=== PATIENT | female | born 1955 | race Caucasian/White ===

== ENCOUNTER 2019-11-23 19:05 | Observation (INO) | payer MEDICAID, SELFPAY ==
[2019-11-23 19:06] VITALS: BP 157/107; PULSE 70; RESP 16; TEMP 36.6; O2SAT 96; BMI 17.5
--- NOTE | 2019-11-23 19:18 | ED.DCSUM_ITS ---
- ER Visit Summary Date of Service: 11/23/19 Chief Complaint: Requesting detox History of Present Illness: The patient is a 64 F requesting detox from heroin. Her last use was yesterday. She states she snorts and injects heroin daily. She was previously on Suboxone treatment but states she did not get along with the doctor and stopped this 6 weeks ago. Since then she has been using heroin. Before using heroin she states she was using morphine for the past 10 years. She also admits to marijuana use. Denies other drug use. Denies alcohol use. She has nausea and diarrhea. Denies other complaints. Physical Examination: Vitals are stable. Patient is afebrile. Alert no acute distress. HEENT exam is unremarkable. Neck is supple. Lungs are clear and equal bilaterally. Heart is regular rate and rhythm. Abdomen is soft nontender nondistended. No guarding or rebound Extremities are unremarkable. Skin is warm and dry. No focal neurologic deficit. Remainder of exam is unremarkable. Emergency Department Course and Treatment: Patient was given IV Zofran. Ordered addiction medicine labs. Will discuss with hospitalist for admission. Disposition: Admission Impression: Opiate dependence This note was generated with [employer] dictation software. It may contain incorrect words, spelling, and punctuation that were not noted in review of the chart prior to signing ED Disposition - Plan for ED Patient: Referrals: Nawaf Walls,Out of [Primary Care Provider] -
[2019-11-23 19:47] VITALS: BP 157/107; PULSE 70; RESP 16; TEMP 36.6; O2SAT 96
--- NOTE | 2019-11-23 19:51 | HP.PCM_ITS ---
History of Present Illness Date of Admission: 11/23/19 Chief Complaint: opiate withdrawal The patient is a 64 year old F with a past medical history of including heroine and nicotine as well as hepatitis C. She was admitted through the ED on 11/23/2019 with a complaint of opiate withdrawal. Patient uses heroin daily and states she snorts this and injects it. Her last use was 1 day prior to admission and thinks she is about 2 g. She complained of headache, generalized malaise and feeling restless, and abdominal cramps as well as increased sweating. She used to be on Suboxone treatment but states she quit about 6 weeks ago because she refused to go to the doctor in [place] as she did not get along with him and he was too far away. Since then she has been using heroin. She is treatment na?ve for hepatitis C. She also admits to using marijuana but denies any alcohol or any other drug use. Review of systems otherwise negative. In the ED, blood pressure was 157/107 with temperature of 97.9, pulse rate of 70 respiratory rate of 16. Chemistry was pending at time of review. He was saturating 96% on room air. Serum alcohol level was pending. He has been admitted to be managed for acute opiate withdrawal. [] Past Medical History Allergies butorphanol [From Stadol] Adverse Reaction (Verified 11/23/19 19:08) NEEDS FOLLOW-UP pentazocine [From Talwin] Adverse Reaction (Verified 11/23/19 19:08) NEEDS FOLLOW-UP ropinirole [From Requip] Adverse Reaction (Verified 11/23/19 19:08) PT UNSURE OF REACTION Surgical History: no surgical history Psychiatric History: No pertinent psych hx RENEWAL SPECIALIST History: No pertinent RENEWAL SPECIALIST history Lives: Alone Smoking Status: Heavy Smoker (>10/day) Tobacco Use: Cigarettes Alcohol: Occasional Drugs: Heroin, Marijuana - *Family History Maternal History Items: No pertinent history Paternal History Items: No pertinent history Review of Systems Constitutional: Reports: Chills, Malaise, Weakness, Fatigue. Denies: Anorexia, Fever Eyes: Denies: Blurred vision HEENT: Denies: Head Aches, Sinus Congestion, Sinus Drainage Cardiovascular: Denies: Chest Pain, Palpitations Respiratory: Denies: Cough, Shortness of Breath, Shortness of breath at rest, Shortness of breath upon exertion, Sputum production Gastrointestinal: Reports: Diarrhea, Nausea. Denies: Abdominal Pain, Vomiting Genitourinary: Denies: Dysuria Musculoskeletal: Denies: Joint Pain, Joint Tenderness Skin: Denies: Rash, Wounds Neurological: Denies: Numbness, Tingling, Focal weakness Psychiatric: Denies: Anxiety, Depression, Homicidal Ideations, Suicidal Ideations Hematologic/ Lymphatic: Denies: Easy Bruising, Easy Bleeding VTE Information - Inpt Only VTE Present on Admission: No VTE Mechan Device Prophylaxis: SCD's VTE Pharm Prophylaxis ordered?: No - Physical Exam Vitals/I&O's: Vital Signs Temp Pulse Resp BP Pulse Ox 97.9 F 70 16 157/107 H 96 11/23/19 19:47 11/23/19 19:47 11/23/19 19:47 11/23/19 19:47 11/23/19 19:47 Oxygen Delivery Method Room Air Weight: 102 lb 1.184 oz Body Mass Index (BMI) 17.5 General: Alert, Oriented x3, Cooperative, - - restless, looks uncomfortable HEENT: Atraumatic, PERRLA, EOMI, Normocephalic Oral: Dry Mucosa Neck: Supple, No JVD, Negative Carotid Bruits Lungs: Clear to auscultation, Normal air movement, No rhonchi, No wheeze, No rales Cardiovascular: Regular rate, Regular Rhythm, Normal S1, Normal S2, No murmurs Abdomen: Bowel Sounds Present, Soft, Non Tender, Non-Distended, No Hepato- splenomegaly Extremities: No clubbing, No cyanosis, No edema, Capillary Refill Less than 3 Seconds Skin: No rashes, No breakdown Musculoskeletal: No Tenderness to Palpation of Joints or Extremities Lymphatic: No Cervical, Supraclavicular, or Inguinal Adenopathy Neurological: Cranial nerves II-XII grossly intact, Neuro grossly intact, Motor Exam 5/5 strength throughout Psych/Mental Status: Anxious, Restless, Alert and oriented to time, place, person, mood and affect Laboratory Results 11/23/19 19:40: Sodium Pending, Potassium Pending, Chloride Pending, Carbon Dioxide Pending, Anion Gap Pending, BUN Pending, Creatinine Pending, Est GFR (MDRD) Af Amer Pending, Est GFR (MDRD) Non-Af Pending, BUN/Creatinine Ratio Pending, Glucose Pending, Calcium Pending, Total Bilirubin Pending, AST Pending, ALT Pending, Alkaline Phosphatase Pending, Total Protein Pending, Albumin Pending 11/23/19 19:40: Ethyl Alcohol Pending Assessment/Plan 64-year-old female admitted for acute opioid withdrawal. 1. Acute opioid withdrawal * Admit to [facility] * CBC and CMP pending. * Started on opioid withdrawal protocol with buprenorphine. * Consult case management for discharge planning as patient wants to continue with her Suboxone treatment upon discharge. * 2. History of hepatitis C: * Treatment na?ve she still using IV drugs. * Counseled that she would need to be off IV drugs before she would qualify for treatment. * 3. Nicotine dependence: * Smokes about 1 pack every 2 to 3 days. * Counseled to quit. * Nicotine patch 21 mg daily. * VT prophylaxis: Low risk. Encouraged to ambulate. Inpatient E&M: 80971 Init Hosp L3
[2019-11-23] MEDS: Ondansetron 4 MG/2 ML Vial IV (20:03)
[2019-11-23 20:08] LABS: ALB/GLOB Ratio 0.5 RATIO (0.9-2.4); AST(SGOT) 34 U/L (15-37); Alanine Aminotransfer ALT/SGPT 26 U/L (13-56); Albumin, Serum 2.8 g/dL (3.2-5.0); Alcohol, Blood (Medical)-Serum < 3.0 mg/dL; Alkaline Phosphatase 117 U/L (45-117); Anion Gap 8 (5-15); BUN 9 mg/dL (7-18); BUN/Creat Ratio 10.6 RATIO (10-20); Calcium,Total 9.1 mg/dL (8.5-10.1); Chloride 110 mmol/L (98-107); Creatinine, Serum 0.85 mg/dL (0.55-1.02); EST Glomerular Filtration Rate 72 mL/min (>60); Est Glom Filt Rate - Afr Amer 87 mL/min (>60); Estimated Creatinine Clearance 50.16 ml/min; Globulin 5.7 g/dL (2.2-4.2); Glucose 175 mg/dL (74-106); Potassium 3.7 mmol/L (3.5-5.1); Protein, Total 8.5 g/dL (6.4-8.2); Sodium Level 140 mmol/L (136-145)
[2019-11-23 20:26] VITALS: PULSE 52
[2019-11-23 20:30] VITALS: BP 149/89; PULSE 51; RESP 16; TEMP 36.7; O2SAT 98
[2019-11-23 20:38] VITALS: BMI 17.2
[2019-11-23 20:47] VITALS: BMI 17.2
[2019-11-23 20:50] LABS: Amphetamine Urine VISTA NEGATIVE (<1000 ng/mL); Barbiturate Urine VISTA NEGATIVE (< 200 ng/mL); Benzodiazepine Urine VISTA NEGATIVE (< 200 ng/mL); Cocaine Urine VISTA NEGATIVE (< 300 ng/mL); Ecstacy Urine VISTA NEGATIVE (< 500 ng/mL); Methadone Urine VISTA NEGATIVE (< 300 ng/mL); PCP Urine VISTA NEGATIVE (< 25 ng/mL); THC Urine VISTA POSITIVE (< 50 ng/mL); Vista UDS pH Range 6
[2019-11-23 21:14] LABS: Bilirubin, Direct 0.09 mg/dL (0.00-0.30)
[2019-11-23] MEDS: cloNIDine HCl 0.1 MG Tablet PO (22:10)
[2019-11-23] MEDS: Methocarbamol 750 MG Tablet 1500 MG PO (22:10)
[2019-11-23] MEDS: Ondansetron 8 MG Tablet PO (23:26)
[2019-11-23] MEDS: Ibuprofen 400 MG Tablet PO (23:36)
[2019-11-23] MEDS: traZODone 100 MG Tablet PO (23:36)
[2019-11-24] MEDS: Buprenorphine HCl 2 MG TAB.SUBL SL ×3 (00:24→16:25)
[2019-11-24] MEDS: Gabapentin 300 MG Capsule PO ×2 (00:24→12:03)
[2019-11-24 00:30] VITALS: BP 161/97; PULSE 76; RESP 16; TEMP 36.6; O2SAT 96
[2019-11-24 04:30] VITALS: BP 138/74; PULSE 52; RESP 16; TEMP 36.6; O2SAT 95
[2019-11-24 05:10] LABS: Absolute Lymphocyte Count 4.78 X10^3/uL (0.83-4.51); Basophil# 0.08 X10^3/uL; Basophil% 0.7 % (0-1); Eosinophil# 0.17 X10^3/uL; Eosinophils% 1.5 % (0-5); Hemoglobin 13.4 g/dL (12.0-15.0); Lymphocyte # 4.78 X10^3/ul (4.0); Lymphocyte % 41.2 % (19-41); Mean Corp Hgb Conc 31.9 g/dL (32-36); Mean Corpuscular Hgb 24.6 pg (27.0-32.0); Mean Corpuscular Volume 77.2 fL (81-99); Mean Platelet Vol. 10.8 fl (6.2-12.0); Monocyte# 0.54 X10^3/uL; Monocyte% 4.7 % (0-10); NRBC Flagged by Analyzer 0 % (0-5); Neutrophil # 5.95 X10^3/uL (2.7-7.7); Neutrophil % 51.3 % (47-70); POSITIVE MORPHOLOGY YES; Platelet Count 199 K/mm3 (150-450); RBC Distribution Width CV 16.9 % (11.6-14.6); RBC Distribution Width SD 46.2 fl (35.1-43.9); Red Blood Count 5.44 M/mm3 (4.2-5.4); White Blood Count 11.6 K/mm3 (4.4-11.0)
[2019-11-24 05:18] LABS: Differential Indicated SCAN CRITERIA MET
[2019-11-24 06:32] LABS: Reactive Lymphocyte RARE
--- NOTE | 2019-11-24 07:08 | PN_ITS ---
Reason for Visit: Follow-up on acute opioid withdrawal Subjective: Patient was seen and examined. Complains of generalized body aches. Denied any chest pain or dizziness. No other acute events overnight Objective: Physical exam: General: Alert, Oriented x3, Cooperative, - - restless, looks uncomfortable HEENT: Atraumatic, PERRLA, EOMI, Normocephalic Oral: Dry Mucosa Neck: Supple, No JVD, Negative Carotid Bruits Lungs: Clear to auscultation, Normal air movement, No rhonchi, No wheeze, No rales Cardiovascular: Regular rate, Regular Rhythm, Normal S1, Normal S2, No murmurs Abdomen: Bowel Sounds Present, Soft, Non Tender, Non-Distended, No Hepato- splenomegaly Extremities: No clubbing, No cyanosis, No edema, Capillary Refill Less than 3 Seconds Skin: No rashes, No breakdown Musculoskeletal: No Tenderness to Palpation of Joints or Extremities Lymphatic: No Cervical, Supraclavicular, or Inguinal Adenopathy Neurological: Cranial nerves II-XII grossly intact, Neuro grossly intact, Motor Exam 5/5 strength throughout Psych/Mental Status: Anxious, Restless, Alert and oriented to time, place, person, mood and affect Vitals/I&O's: Vital Signs Temp Pulse Resp BP Pulse Ox 97.9 F 52 L 16 138/74 H 95 11/24/19 04:30 11/24/19 04:30 11/24/19 04:30 11/24/19 04:30 11/24/19 04:30 Oxygen Delivery Method Room Air Weight: 45.4 kg Body Mass Index (BMI) 17.2 Intake and Output for Last 24 Hours 11/22/19 11/23/19 11/24/19 23:59 23:59 23:59 Intake Total 350 / 350 200 / 200 Balance 350 / 350 200 / 200 Laboratory Results 11/23/19 19:40: Sodium 140, Potassium 3.7, Chloride 110 H, Carbon Dioxide 22.0, Anion Gap 8, BUN 9, Creatinine 0.85, Estim Creat Clear Calc 50.16, Est GFR (MDRD) Af Amer 87, Est GFR (MDRD) Non-Af 72, BUN/Creatinine Ratio 10.6, Glucose 175 H, Calcium 9.1, Total Bilirubin 0.50, AST 34, ALT 26, Alkaline Phosphatase 117, Total Protein 8.5 H, Albumin 2.8 L, Globulin 5.7 H, Albumin/Globulin Ratio 0.5 L 11/23/19 19:40: Ethyl Alcohol < 3.0 11/23/19 19:40: Direct Bilirubin 0.09 11/23/19 20:15: Urine Opiates Screen NEGATIVE, Urine Methadone Screen NEGATIVE, Ur Barbiturates Screen NEGATIVE, Ur Phencyclidine Scrn NEGATIVE, Ur Amphetamines Screen NEGATIVE, U Methamphetamin-MDMA NEGATIVE, U Benzodiazepines Scrn NEGATIVE, Urine Cocaine Screen NEGATIVE, U Cannabinoids Screen POSITIVE H, Ur Drug Screen Comment 11/24/19 05:02: WBC 11.6 H, RBC 5.44 H, Hgb 13.4, Hct 42.0, MCV 77.2 L, MCH 24.6 L, MCHC 31.9 L, RDW Std Deviation 46.2 H, RDW Coeff of Nathanael 16.9 H, Plt Count 199, MPV 10.8, Immature Gran % (Auto) 0.600, Neut % (Auto) 51.3, Lymph % (Auto) 41.2 H, [place] % (Auto) 4.7, Eos % (Auto) 1.5, Baso % (Auto) 0.7, Absolute Neuts (auto) 6.0, Absolute Lymphs (auto) 4.78 H, Nucleated RBC % 0, Reactive Lymphocytes RARE Current Medications Buprenorphine HCl (Buprenorphine Hcl) 4 mg SL Q8H LESLIE; Taper Stop: 11/27/19 00:29 Last Admin: 11/24/19 00:24 Dose: 4 mg Documented by: Clonidine (Catapres) 0.1 mg PO Q8H PRN PRN PRN Reason: RESTLESSNESS Last Admin: 11/23/19 22:10 Dose: 0.1 mg Documented by: Dextrose (D50w Syringe) 0 gm IV X1 PRN; Protocol PRN Reason: Hypoglycemia Dicyclomine HCl (Bentyl) 20 mg PO Q6H PRN PRN PRN Reason: Abdominal Discomfort Gabapentin (Neurontin) 300 mg PO Q8H PRN PRN PRN Reason: moderate to severe anxiety Last Admin: 11/24/19 00:24 Dose: 300 mg Documented by: Glucagon () 1 mg IM .X1 PRN PRN Reason: Hypoglycemia Hydroxyzine Pamoate (Vistaril Pamoate Capsule) 50 mg PO Q6H PRN PRN PRN Reason: mild anxiety Ibuprofen (Motrin) 400 mg PO Q6H PRN PRN PRN Reason: HEADACHE Last Admin: 11/23/19 23:36 Dose: 400 mg Documented by: Loperamide HCl (Imodium) 2 mg PO Q4H PRN PRN PRN Reason: LOOSE STOOLS Methocarbamol (Methocarbamol) 1,500 mg PO Q6H PRN PRN PRN Reason: MUSCLE SPASM Last Admin: 11/23/19 22:10 Dose: 1,500 mg Documented by: Nutritional Formula (Lactose Free) (Ensure Enlive) 120 ml PO 4X/DAY LESLIE Last Admin: 11/23/19 22:10 Dose: 120 ml Documented by: Ondansetron HCl (Zofran) 8 mg PO Q8H PRN PRN PRN Reason: NAUSEA Last Admin: 11/23/19 23:26 Dose: 8 mg Documented by: Ondansetron HCl (Zofran) 4 mg IV Q8H PRN PRN PRN Reason: NAUSEA/VOMITING Sodium Chloride () 10 - 40 ml IV UD PRN PRN Reason: SALINE FLUSH Trazodone HCl (Desyrel) 100 mg PO QHS PRN PRN PRN Reason: INSOMNIA Last Admin: 11/23/19 23:36 Dose: 100 mg Documented by: STROKE Vital Signs/Narrative: Vital Signs Temp Pulse Resp BP Pulse Ox 11/24/19 04:30 97.9 F 52 L 16 138/74 H 95 Medical Necessity - Tobacco Use Smoking Status: Heavy Smoker (>10/day) Tobacco Use: Cigarettes Assessment/Plan 1. Acute opioid withdrawal, stable, continue on withdrawal protocol 2. Hypertension, improved, No history of hypertension; continue to monitor 3. Chronic Hepatitis C, needs to follow-up in the outpatient 4. Nicotine dependence, on replacement 5. Malnutrition, mild to moderate, on nutritional supplements 6. Polysubstance use, advised to quit 7. DVT prophylaxis - encourage early ambulation Inpatient E&M: 38040 Subs Hosp L2
--- NOTE | 2019-11-24 09:23 | CASEMGMT ---
Social Work Note Pt is RAMP pt. SW placed a call to Samantha Hightower at [facility] and updated her that pt will need to be seen today. Samantha states she will send someone over from [facility] today. Minda Galvez YARN PACKER, CABLE SWAGER
[2019-11-24] MEDS: Ibuprofen 400 MG Tablet PO ×2 (11:11→21:02)
[2019-11-24] MEDS: Ondansetron 8 MG Tablet PO (11:12)
[2019-11-24] MEDS: hydrOXYzine PAM 25 MG Capsule 50 MG PO (11:12)
[2019-11-24] MEDS: Methocarbamol 750 MG Tablet 1500 MG PO ×2 (12:01→18:33)
--- NOTE | 2019-11-24 12:24 | NURSING ---
pt called out wanting more meds for hurting cm from 180 in to eval pt for dc planning. pt more anxious appearing during evalulation and asking for gabepentin also at this time.
--- NOTE | 2019-11-24 12:47 | NURSING ---
180 in to see pt this shift- pt refusing all services from [facility] and states that she wants to return home to [place]. 180 states that she did refer her to [place].
[2019-11-24] MEDS: Gabapentin 600 MG Tablet PO ×2 (14:27→21:02)
[2019-11-24 14:47] VITALS: PULSE 76; RESP 18
[2019-11-24] MEDS: Ipratropium/Albuterol Sulfate 3 ML AMPUL.NEB INHALATION (14:47)
[2019-11-24] MEDS: cloNIDine HCl 0.2 MG Tablet PO ×2 (14:55→21:03)
[2019-11-24 18:00] VITALS: BP 133/83; PULSE 66; RESP 16; TEMP 36.8; O2SAT 97
[2019-11-24 22:53] VITALS: BP 119/78; PULSE 67; RESP 16; TEMP 37.3; O2SAT 94
[2019-11-25] MEDS: Buprenorphine HCl 2 MG TAB.SUBL SL ×3 (00:48→16:38)
[2019-11-25 04:04] VITALS: BP 136/82; PULSE 56; RESP 16; TEMP 36.7; O2SAT 94
[2019-11-25] MEDS: cloNIDine HCl 0.2 MG Tablet PO ×3 (06:28→22:31)
[2019-11-25] MEDS: Ondansetron 8 MG Tablet PO ×2 (06:28→21:27)
[2019-11-25] MEDS: Gabapentin 600 MG Tablet PO ×3 (06:28→22:31)
[2019-11-25 06:35] VITALS: PULSE 77; RESP 16
[2019-11-25] MEDS: Ipratropium/Albuterol Sulfate 3 ML AMPUL.NEB INHALATION (06:35)
[2019-11-25] MEDS: Budesonide Respules 0.5 MG/2 ML AMPUL.NEB. INHALATION (06:35)
[2019-11-25 08:10] VITALS: BP 116/77; PULSE 59; RESP 16; TEMP 36.6; O2SAT 96
--- NOTE | 2019-11-25 08:18 | PN_ITS ---
Reason for Visit: Follow-up on acute opiate withdrawal/left hand and foot swelling. Subjective: Patient was seen and examined. She complains of swelling in the left hand ongoing for some days. She took some leftover antibiotics a couple of days ago. She denies any fever or chills. She is to express some pus from the hand. The swelling in the hand and foot is much better. Objective: Physical exam: General: Alert, Oriented x3, Cooperative, - - restless, looks uncomfortable HEENT: Atraumatic, PERRLA, EOMI, Normocephalic Oral: Dry Mucosa Neck: Supple, No JVD, Negative Carotid Bruits Lungs: Clear to auscultation, Normal air movement, No rhonchi, No wheeze, No rales Cardiovascular: Regular rate, Regular Rhythm, Normal S1, Normal S2, No murmurs Abdomen: Bowel Sounds Present, Soft, Non Tender, Non-Distended, No Hepato- splenomegaly Extremities: No clubbing, No cyanosis, No edema, Capillary Refill Less than 3 Seconds Skin: No rashes, No breakdown Musculoskeletal: No Tenderness to Palpation of Joints or Extremities Lymphatic: No Cervical, Supraclavicular, or Inguinal Adenopathy Neurological: Cranial nerves II-XII grossly intact, Neuro grossly intact, Motor Exam 5/5 strength throughout Psych/Mental Status: Anxious, Restless, Alert and oriented to time, place, person, mood and affect Vitals/I&O's: Vital Signs Temp Pulse Resp BP Pulse Ox 97.9 F 59 L 16 116/77 96 11/25/19 08:10 11/25/19 08:10 11/25/19 08:10 11/25/19 08:10 11/25/19 08:10 Oxygen Delivery Method Room Air Weight: 45.4 kg Body Mass Index (BMI) 17.2 Intake and Output for Last 24 Hours 11/23/19 11/24/19 11/25/19 23:59 23:59 23:59 Intake Total 350 / 350 200 / 200 Balance 350 / 350 200 / 200 Current Medications Albuterol Sulfate (Ventolin Aerosols) 2.5 mg INHALATION Q4H PRN PRN PRN Reason: SOB &/OR WHEEZING Albuterol/Ipratropium (Duoneb) 3 ml INHALATION Q6HWA.RT LESLIE Last Admin: 11/25/19 06:35 Dose: 3 ml Documented by: Budesonide (Pulmicort Aerosol) 0.5 mg INHALATION Q12H.RT [facility] Last Admin: 11/25/19 06:35 Dose: 0.5 mg Documented by: Buprenorphine HCl (Buprenorphine Hcl) 2 mg SL Q8H [facility]; Taper Stop: 11/27/19 00:29 Last Admin: 11/25/19 00:48 Dose: 2 mg Documented by: Clonidine (Catapres) 0.2 mg PO TID [facility] Last Admin: 11/25/19 06:28 Dose: 0.2 mg Documented by: Dextrose (D50w Syringe) 0 gm IV X1 PRN; Protocol PRN Reason: Hypoglycemia Dicyclomine HCl (Bentyl) 20 mg PO Q6H PRN PRN PRN Reason: Abdominal Discomfort Famotidine (Pepcid) 40 mg PO DAILY [facility] Gabapentin (Neurontin) 600 mg PO TID [facility] Last Admin: 11/25/19 06:28 Dose: 600 mg Documented by: Glucagon () 1 mg IM .X1 PRN PRN Reason: Hypoglycemia Hydroxyzine Pamoate (Vistaril Pamoate Capsule) 50 mg PO Q6H PRN PRN PRN Reason: mild anxiety Last Admin: 11/24/19 11:12 Dose: 50 mg Documented by: Ibuprofen (Motrin) 400 mg PO Q6H PRN PRN PRN Reason: HEADACHE Last Admin: 11/24/19 21:02 Dose: 400 mg Documented by: Loperamide HCl (Imodium) 2 mg PO Q4H PRN PRN PRN Reason: LOOSE STOOLS Loratadine (Claritin) 10 mg PO DAILY [facility] Methocarbamol (Methocarbamol) 1,500 mg PO Q6H PRN PRN PRN Reason: MUSCLE SPASM Last Admin: 11/24/19 18:33 Dose: 1,500 mg Documented by: Nicotine (Nicoderm Cq (Pbkc)) 21 mg TRANSDERM. DAILY [facility] Last Admin: 11/24/19 14:27 Dose: Not Given Documented by: Nicotine Polacrilex ([place]ugby Nicotine (Bkc)) 2 mg PO Q2H PRN PRN PRN Reason: Nicotine Craving Nutritional Formula (Lactose Free) (Ensure Enlive) 120 ml PO 4X/DAY [facility] Last Admin: 11/24/19 21:05 Dose: 120 ml Documented by: Ondansetron HCl (Zofran) 8 mg PO Q8H PRN PRN PRN Reason: NAUSEA Last Admin: 11/25/19 06:28 Dose: 8 mg Documented by: Ondansetron HCl (Zofran) 4 mg IV Q8H PRN PRN PRN Reason: NAUSEA/VOMITING Sodium Chloride () 10 - 40 ml IV UD PRN PRN Reason: SALINE FLUSH Trazodone HCl (Desyrel) 100 mg PO QHS PRN PRN PRN Reason: INSOMNIA Last Admin: 11/23/19 23:36 Dose: 100 mg Documented by: STROKE Vital Signs/Narrative: Vital Signs Temp Pulse Resp BP Pulse Ox 11/25/19 08:10 97.9 F 59 L 16 116/77 96 11/25/19 06:35 77 16 Medical Necessity - Tobacco Use Smoking Status: Heavy Smoker (>10/day) Tobacco Use: Cigarettes Assessment/Plan 1. Acute opioid withdrawal, stable, continue on withdrawal protocol 2. Left dorsum of hand and left foot swelling, Will get x-ray of the foot, plastic surgery consult for possible I&D of the left arm 3. Hypertension, improved, No history of hypertension; continue to monitor 4. Chronic Hepatitis C, needs to follow-up in the outpatient 5. Nicotine dependence, on replacement 6. Malnutrition, severe, POA On nutritional supplements 7. Polysubstance use, advised to quit 8. DVT prophylaxis - encourage early ambulation Inpatient E&M: 05472 Subs Hosp L2
[2019-11-25] MEDS: Ibuprofen 400 MG Tablet PO ×2 (08:25→20:08)
[2019-11-25] MEDS: Dicyclomine 10 MG Capsule 20 MG PO (08:26)
[2019-11-25] MEDS: Famotidine 20 MG Tablet 40 MG PO (08:29)
--- NOTE | 2019-11-25 08:51 | CASEMGMT ---
Social Work Note SW received message from Carol at [facility]. Carol states she placed copies of pt's assessment on pt's chart and pt will need referral to [facility] for follow up services. BROWN placed a call back to Carol at [facility] and left message that [facility] has been making follow up appointments and referrals for pt that they see so [facility] will need to follow up with pt. Minda Galvez LAW ENFORCEMENT OFFICER, STORAGE ARCHITECT
--- NOTE | 2019-11-25 11:08 | RAD_ITS ---
STUDY: X-RAY - LEFT FOOT CLINICAL: Female, 64 years old. Pain on top of foot for two weeks. TECHNIQUE: 3 view(s) of the foot. COMPARISON: None. FINDINGS: Normal talus, calcaneus, and tarsal bones. Normal visualized subtalar, talonavicular, calcaneocuboid, tarsal and tarsometatarsal articulations. Normal metatarsi. There is degenerative arthrosis of the metatarsophalangeal joint of the hallux . Normal tibial and fibular sesamoid bones. Normal interphalangeal joint of the great toe. Normal phalanges of the great toe. Normal second through fifth metatarsophalangeal joints. Normal interphalangeal joints and phalanges of the lesser toes. Soft tissue swelling. RAD/Foot min 3 Views IMPRESSION: Soft tissue swelling. Electronically Signed: Agustin Douglas, at 12:36 EDT , Service support ,
[2019-11-25] MEDS: Amox/Clavulanate 875 MG Tablet PO ×2 (12:16→22:31)
[2019-11-25] MEDS: hydrOXYzine PAM 25 MG Capsule 50 MG PO ×2 (12:19→22:31)
[2019-11-25] MEDS: Methocarbamol 750 MG Tablet 1500 MG PO ×2 (12:19→22:31)
--- NOTE | 2019-11-25 15:15 | CASEMGMT ---
Social Work Note RN updated this worker that pt was provided [facility] resources but pt stated that she has heard of all those places before, and she knows there are more available. Pt stated that she needs a place lined up for her when she gets discharged. BROWN placed a call to Samantha at [facility] and updated her on above information. Samantha states that Johnny was going to be in to see pt today and give resources. BROWN explained that it appears Johnny was at [facility] and provided pt with resources but she didn't want to go to those places and wanted more options. BROWN asked Samantha if someone from [facility] can come back and talk to pt again either today or tomorrow. Samantha states that pt was linked up with peer support Sangita and Sangita was going to be at [facility] today and she will place a call to Sangita to see if Sangita can talk to pt about different options. BROWN updated RN. RN asked that this worker update pt. BROWN will update pt as time allows. Minda Galvez MEAT SALES AND STORAGE MANAGER, TECHNICAL SERVICES ANALYST
--- NOTE | 2019-11-25 15:41 | CASEMGMT ---
Social Work SW met with pt in room and introduced self. Discussed pt concerns with drug treatment options provided to 180. Pt confirms to SW that she does not want inpatient setting but does definitely want outpatient care. Pt stating that she would like to go to [facility] which was not on the list given to pt by 180. She would also be willing to go to [facility] which is on the list. Pt states she has been there before and would be willing to try it again. Pt also gives an option of going to Dr. Aviles's office. Pt stating that she has seen him before and would be willing to see him again. SW encouraged pt to speak with [facility] staff member when they arrive about these places. left with Dr. Samantha Hightower and updated her on pt choices for rehab. Pt adamant that she needs an appointment set prior to discharge as she does not feel as though she can stay clean with out a program in place. 180 to continue to follow for rehab placement. KIM Adams
--- NOTE | 2019-11-25 16:44 | CASEMGMT ---
Social Work Note SW received call from Samantha at [facility] stating patient support Sangita was at [facility] today and spoke with pt about treatment options in [place]. Pt had stated again that she had been to those places. Samantha questioned if pt knew that she could return to those places and try them again if needed. Samantha states that pt could go to [facility] if pt is agreeable. Samantha states staff from [facility] will be in to see pt again tomorrow. Minda Galvez CONTRACT ADMINISTRATION MANAGER, GOLF BALL COVER TREATER
--- NOTE | 2019-11-25 17:16 | CON.PCM_ITS ---
Reason for Consult Date of Consultation: 11/25/19 Reason for Consultation: IV drug use abscess dorsum left hand at MP joint ring finger. REFERRING PHYSICIAN: Dr. Rg. TELEVISION PRODUCTION ASSISTANT: Dr. Morris. History of Present Illness: The patient is a 64 year old F with a past medical history of including heroine and nicotine as well as hepatitis C was admitted for opiate withdrawal. Patient uses heroin daily and states she snorts this and injects it. She had been on Suboxone in the past but not presently. She states she tried to inject drugs on the dorsum left hand several days ago and developed increased redness and swelling and pain. She poked the area with a needle at home and drained the pus herself which improved her symptomatology. She has a persistent area of fluctuance on the dorsum of her left hand at MP joint ring finger. She is currently on Augmentin. She is right hand dominant. I was asked to evaluate this patient for surgical options for treatment. Past Medical History Past Medical History (Chronic Problems): Chronic Problems Smoker (Chronic) Heroin use (Chronic) IV drug abuse (Chronic) Allergies butorphanol [From Stadol] Adverse Reaction (Verified 11/23/19 19:08) NEEDS FOLLOW-UP pentazocine [From Talwin] Adverse Reaction (Verified 11/23/19 19:08) NEEDS FOLLOW-UP ropinirole [From Requip] Adverse Reaction (Verified 11/23/19 19:08) PT UNSURE OF REACTION Home Medications: Ambulatory Orders Medication Instructions Recorded Albuterol Inhaler [Ventolin Hfa 2 puff INHALATION Q4H PRN PRN 11/23/19 (SP)] Budesonide/Formoterol Fumarate 2 puff IH BID 11/23/19 [Symbicort 160-4.5 Mcg Inhaler] Cetirizine HCl [Zyrtec] 10 mg PO DAILY 11/23/19 Clonidine HCl [Catapres] 0.2 mg PO TID 11/23/19 Famotidine [Pepcid] 40 mg PO DAILY 11/23/19 Gabapentin 600 mg PO TID 11/23/19 Ibuprofen 600 mg PO 4X/DAY 11/23/19 Omeprazole [Prilosec] 40 mg PO DAILY 11/23/19 Tiotropium [place] [Spiriva 18 MCG] 1 puff INHALATION DAILY 11/23/19 Surgical History: no surgical history Psychiatric History: No pertinent psych hx OUTREACH CONSULTANT History: No pertinent OUTREACH CONSULTANT history Lives: Alone Smoking Status: Heavy Smoker (>10/day) Tobacco Use: Cigarettes Alcohol: Occasional Drugs: Heroin, Marijuana - *Family History Maternal History Items: No pertinent history Paternal History Items: No pertinent history Review of Systems Comment: Constitutional: Reports: Chills, Malaise, Weakness, Fatigue. Denies: Anorexia, Fever. Eyes: Denies: Blurred vision. HEENT: Denies: Head Aches, Sinus Congestion, Sinus Drainage. Cardiovascular: Denies: Chest Pain, Palpitations. Respiratory: Denies: Cough, Shortness of Breath, Shortness of breath at rest, Shortness of breath upon exertion, Sputum production. Gastrointestinal: Reports: Diarrhea, Nausea. Denies: Abdominal Pain, Vomiting. Genitourinary: Denies: Dysuria. Musculoskeletal: Denies: Joint Pain, Joint Tenderness. Skin: Denies: Rash, Wounds. Neurological: Denies: Numbness, Tingling, Focal weakness. Psychiatric: Denies: Anxiety, Depression, Homicidal Ideations, Suicidal Ideations. Hematologic/ Lymphatic: Denies: Easy Bruising, Easy Bleeding - Physical Exam Vitals/I&O's: General: Alert, Oriented x3. HEENT: PERRLA, EOMI. Oral: Dry Mucosa Neck: Supple, nontender. No cervical adenopathy. Lungs: Clear to auscultation. Cardiovascular: Regular rate, Regular Rhythm. Abdomen: Bowel Soft, Non-Distended. Extremities: Mild edema dorsum left hand. Has full range of motion. On the dorsum left hand at MP joint ring finger is an area of fluctuance. Measures 2 cm. Mild redness. No purulent drainage. Mild tenderness to palpation. Skin: No rashes, No breakdown. Lymphatic: No Cervical, Supraclavicular, or Inguinal Adenopathy Neurological: Cranial nerves II-XII grossly intact. Psych/Mental Status: Anxious, Restless, Alert and oriented to time, place, person, mood and affect Vital Signs Temp Pulse Resp BP Pulse Ox 97.9 F 59 L 16 116/77 96 11/25/19 08:10 11/25/19 08:10 11/25/19 08:10 11/25/19 08:10 11/25/19 08:10 Oxygen Delivery Method Room Air Weight: 100 lb 1.438 oz Body Mass Index (BMI) 17.2 Intake and Output for Last 24 Hours 11/23/19 11/24/19 11/25/19 23:59 23:59 23:59 Intake Total 350 / 350 200 / 200 Balance 350 / 350 200 / 200 Current Medications Albuterol Sulfate (Ventolin Aerosols) 2.5 mg INHALATION Q4H PRN PRN PRN Reason: SOB &/OR WHEEZING Albuterol/Ipratropium (Duoneb) 3 ml INHALATION Q6HWA.RT [facility] Last Admin: 11/25/19 13:00 Dose: Not Given Documented by: Amoxicillin/Clavulanate Potassium (Augmentin Tablet) 875 mg PO BID [facility] Last Admin: 11/25/19 12:16 Dose: 875 mg Documented by: Budesonide (Pulmicort Aerosol) 0.5 mg INHALATION Q12H.RT [facility] Last Admin: 11/25/19 06:35 Dose: 0.5 mg Documented by: Buprenorphine HCl (Buprenorphine Hcl) 2 mg SL Q8H LESLIE; Taper Stop: 11/27/19 00:29 Last Admin: 11/25/19 16:38 Dose: 2 mg Documented by: Clonidine (Catapres) 0.2 mg PO TID [facility] Last Admin: 11/25/19 14:09 Dose: 0.2 mg Documented by: Dextrose (D50w Syringe) 0 gm IV X1 PRN; Protocol PRN Reason: Hypoglycemia Dicyclomine HCl (Bentyl) 20 mg PO Q6H PRN PRN PRN Reason: Abdominal Discomfort Last Admin: 11/25/19 08:26 Dose: 20 mg Documented by: Famotidine (Pepcid) 40 mg PO DAILY [facility] Last Admin: 11/25/19 08:29 Dose: 40 mg Documented by: Gabapentin (Neurontin) 600 mg PO TID [facility] Last Admin: 11/25/19 14:09 Dose: 600 mg Documented by: Glucagon () 1 mg IM .X1 PRN PRN Reason: Hypoglycemia Hydroxyzine Pamoate (Vistaril Pamoate Capsule) 50 mg PO Q6H PRN PRN PRN Reason: mild anxiety Last Admin: 11/25/19 12:19 Dose: 50 mg Documented by: Ibuprofen (Motrin) 400 mg PO Q6H PRN PRN PRN Reason: HEADACHE Last Admin: 11/25/19 08:25 Dose: 400 mg Documented by: Loperamide HCl (Imodium) 2 mg PO Q4H PRN PRN PRN Reason: LOOSE STOOLS Loratadine (Claritin) 10 mg PO DAILY [facility] Last Admin: 11/25/19 08:25 Dose: Not Given Documented by: Methocarbamol (Methocarbamol) 1,500 mg PO Q6H PRN PRN PRN Reason: MUSCLE SPASM Last Admin: 11/25/19 12:19 Dose: 1,500 mg Documented by: Nicotine (Nicoderm Cq (Pbkc)) 21 mg TRANSDERM. DAILY [facility] Last Admin: 11/25/19 08:26 Dose: Not Given Documented by: Nicotine Polacrilex (Rugby Nicotine (Bkc)) 2 mg PO Q2H PRN PRN PRN Reason: Nicotine Craving Nutritional Formula (Lactose Free) (Ensure Enlive) 120 ml PO 4X/DAY [facility] Last Admin: 11/25/19 16:38 Dose: 120 ml Documented by: Ondansetron HCl (Zofran) 8 mg PO Q8H PRN PRN PRN Reason: NAUSEA Last Admin: 11/25/19 06:28 Dose: 8 mg Documented by: Ondansetron HCl (Zofran) 4 mg IV Q8H PRN PRN PRN Reason: NAUSEA/VOMITING Sodium Chloride () 10 - 40 ml IV UD PRN PRN Reason: SALINE FLUSH Trazodone HCl (Desyrel) 100 mg PO QHS PRN PRN PRN Reason: INSOMNIA Last Admin: 11/23/19 23:36 Dose: 100 mg Documented by: Assessment/Plan All Active Problems Abscess of left hand including fingers (Acute) 1. Abscess dorsum left hand at MP joint ring finger. 2. IV drug abuse. 3. Heroin use. 4. Smoker. Continue Augmentin. Will treat with Unasyn perioperatively. Will check an x-ray to look for fracture and/or retained foreign body. Recommend operative intervention with surgical preparation dorsum left hand at MP joint ring finger with incision and drainage and excisional debridement abscess. Will leave the wound open and begin Silver dressing changes daily. After discharge can followup at [facility]. If she develops a plateau in the healing process, can proceed with delayed closure with skin graft or skin flap reconstruction. Surgery will be done tomorrow under general anesthesia. Anticipate increased metabolic demands from the infection. Will obtain a Prealbumin and encourage nutritional supplementation with protein to help the healing process. Patient was informed of the risks and complications of the procedure including alternatives to surgery. These were discussed with the patient personally. Patient voices understanding and wishes to proceed. Some of the risks and complications that were discussed included but were not inclusive of failure to diagnose including symptom relief, pain, infection, numbness, stiffness, loss of digit, RSD (CRPS), need for further surgery, contracture, and wound healing problems. Encouraged patient to stop smoking as it may have deleterious effects on wound healing. Procedure Criteria Procedure Type: Essential Procedure Essential: Yes Criteria Statement: On 09/01/2019 the [facility] ([facility]) Public Order signed by [facility] Director Roma Hernandez M.D., regarding the Management of Non-Essential Surgeries and Procedures for the purpose of preserving Personal Protective Equipment (PPE) and critical hospital capacity and resources within [place] went into effect as of 09/02/2019 at 5:00PM. According to the [facility] Public Order: This action will remain in full force and effect until the State of Emergency declared by the Governor no longer exists or the Director of the [facility] rescinds or modifies this Order. This [facility] order stated all non-essential or elective surgeries and procedures that utilize PPE should be delayed unless there is undue risk to the current or future health of a patient. After reviewing the aforementioned [facility] Public Order and the patient's clinical case, I have determined that the scheduled procedure meets the criteria to go forward. Risk to Patient if Procedure Delayed: Risk of rapidly worsening to severe symptoms if delayed - patient has an IV drug abuse abscess dorsum left hand at MP joint ring finger. Inpatient E&M: 85549 Init Hosp L2 - ICD-10 - L02.512, F19.10, F11.90, F17.200
[2019-11-25 18:58] VITALS: BP 133/75; PULSE 55; RESP 16; TEMP 36.8; O2SAT 92
[2019-11-25 20:00] VITALS: RESP 18
[2019-11-25] MEDS: traZODone 100 MG Tablet PO (22:33)
[2019-11-26] VITALS (13 sets, daily range): BP systolic 115–187; BP diastolic 66–123; PULSE 48–68; RESP 16–20; TEMP 36.4–37.1; O2SAT 93–99; BMI 17.2
[2019-11-26] MEDS: Buprenorphine HCl 2 MG TAB.SUBL SL ×2 (00:33→15:00)
[2019-11-26] MEDS: Ibuprofen 400 MG Tablet PO ×3 (04:25→21:48)
[2019-11-26 04:45] LABS: Amphetamine Urine VISTA NEGATIVE (<1000 ng/mL); Barbiturate Urine VISTA NEGATIVE (< 200 ng/mL); Benzodiazepine Urine VISTA NEGATIVE (< 200 ng/mL); Cocaine Urine VISTA NEGATIVE (< 300 ng/mL); Ecstacy Urine VISTA NEGATIVE (< 500 ng/mL); Methadone Urine VISTA NEGATIVE (< 300 ng/mL); PCP Urine VISTA NEGATIVE (< 25 ng/mL); THC Urine VISTA POSITIVE (< 50 ng/mL); Vista UDS pH Range 7
--- NOTE | 2019-11-26 06:00 | EKG12_ITS ---
Test Reason : PRE OP Blood Pressure : / mmHG Vent. Rate : 049 BPM Atrial Rate : 049 BPM P-R Int : 142 ms QRS Dur : 092 ms QT Int : 488 ms P-R-T Axes : 057 002 034 degrees QTc Int : 440 ms Sinus bradycardia Low voltage QRS (Limb Leads) Confirmed by CHARLEY SAMUEL, SEGUNDO ([id number]), graphic editor SNEHA PRATT ([id number]) on 12/02/2019 1:16:14 PM Referred By: PAUL Confirmed By:SEGUNDO WHITEHEAD MD
[2019-11-26 06:07] LABS: Hematocrit 41.5 % (37-47); Hemoglobin 12.7 g/dL (12.0-15.0); Mean Corp Hgb Conc 30.6 g/dL (32-36); Mean Corpuscular Hgb 24.6 pg (27.0-32.0); Mean Corpuscular Volume 80.3 fL (81-99); Mean Platelet Vol. 10.8 fl (6.2-12.0); Platelet Count 212 K/mm3 (150-450); RBC Distribution Width CV 17.7 % (11.6-14.6); RBC Distribution Width SD 48.9 fl (35.1-43.9); Red Blood Count 5.17 M/mm3 (4.2-5.4)
[2019-11-26] MEDS: Gabapentin 600 MG Tablet PO ×3 (06:47→21:48)
[2019-11-26] MEDS: cloNIDine HCl 0.2 MG Tablet PO ×3 (06:47→21:48)
[2019-11-26] MEDS: Budesonide Respules 0.5 MG/2 ML AMPUL.NEB. INHALATION (07:04)
[2019-11-26] MEDS: Ipratropium/Albuterol Sulfate 3 ML AMPUL.NEB INHALATION (07:04)
[2019-11-26] MEDS: Amox/Clavulanate 875 MG Tablet PO (09:36)
[2019-11-26] MEDS: Ondansetron 8 MG Tablet PO (09:36)
[2019-11-26] MEDS: hydrOXYzine PAM 25 MG Capsule 50 MG PO ×2 (09:47→21:47)
--- NOTE | 2019-11-26 10:20 | RAD_ITS ---
STUDY: X-RAY - LEFT HAND REASON FOR EXAM: Female, 64 years old. ABSCESS DORSUM LEFT HAND RING FINGER TECHNIQUE: 3 view(s) of the hand. COMPARISON: None. FINDINGS: Normal radiocarpal articulation. Normal distal radioulnar joint. Normal visualized carpal bones. Normal carpal articulations Normal carpometacarpal articulation of the thumb. Normal second through fifth carpometacarpal joints. Normal metacarpi. Normal metacarpophalangeal joint of the thumb. Normal interphalangeal joint of the thumb. Normal proximal and distal phalanges of the thumb. Normal metacarpophalangeal joints of the second through fifth fingers. Normal proximal and distal interphalangeal joints of the second through fifth fingers. Normal phalanges of the second through fifth fingers. 1.8 cm x 2.2 cm linear metallic density in the soft tissues between the fourth and fifth metacarpal. Similar appearing fine linear metallic density measuring 7.3 mm is seen in the soft tissues overlying the base of the first metacarpal. This is in keeping with the foreign bodies. RAD/Hand Min 3 Views IMPRESSION: Linear metallic foreign bodies are seen in the soft tissues between the fourth and fifth metacarpals as well as overlying the base of the first metacarpal. Electronically Signed: Agustin Douglas, at 13:54 EDT , Service support ,
--- NOTE | 2019-11-26 11:26 | PN_ITS ---
Reason for Visit: Follow-up on acute opiate withdrawal/left hand and foot swelling. Subjective: Patient was seen and examined. She is going for surgery-I&D of the left hand by plastic surgery. Denies any fever or chills. Objective: Physical exam: General: Alert, Oriented x3, Cooperative, - - restless, looks uncomfortable HEENT: Atraumatic, PERRLA, EOMI, Normocephalic Oral: Dry Mucosa Neck: Supple, No JVD, Negative Carotid Bruits Lungs: Clear to auscultation, Normal air movement, No rhonchi, No wheeze, No rales Cardiovascular: Regular rate, Regular Rhythm, Normal S1, Normal S2, No murmurs Abdomen: Bowel Sounds Present, Soft, Non Tender, Non-Distended, No Hepato- splenomegaly Extremities: No clubbing, No cyanosis, No edema, Capillary Refill Less than 3 Seconds Skin: No rashes, No breakdown Musculoskeletal: No Tenderness to Palpation of Joints or Extremities Lymphatic: No Cervical, Supraclavicular, or Inguinal Adenopathy Neurological: Cranial nerves II-XII grossly intact, Neuro grossly intact, Motor Exam 5/5 strength throughout Psych/Mental Status: Anxious, Restless, Alert and oriented to time, place, person, mood and affect Vitals/I&O's: Vital Signs Temp Pulse Resp BP Pulse Ox 97.8 F 55 L 16 125/84 H 97 11/26/19 10:38 11/26/19 10:38 11/26/19 10:38 11/26/19 10:38 11/26/19 10:38 Oxygen Delivery Method Room Air Weight: 45.4 kg Body Mass Index (BMI) 17.2 Intake and Output for Last 24 Hours 11/24/19 11/25/19 11/26/19 23:59 23:59 23:59 Intake Total 200 / 200 Balance 200 / 200 Laboratory Results 11/26/19 04:15: Urine Opiates Screen NEGATIVE, Urine Methadone Screen NEGATIVE, Ur Barbiturates Screen NEGATIVE, Ur Phencyclidine Scrn NEGATIVE, Ur Amphetamines Screen NEGATIVE, U Methamphetamin-MDMA NEGATIVE, U Benzodiazepines Scrn NEGATIVE, Urine Cocaine Screen NEGATIVE, U Cannabinoids Screen POSITIVE H, Ur Drug Screen Comment 11/26/19 05:40: WBC 10.0, RBC 5.17, Hgb 12.7, Hct 41.5, MCV 80.3 L, MCH 24.6 L, MCHC 30.6 L, RDW Std Deviation 48.9 H, RDW Coeff of Nathanael 17.7 H, Plt Count 212, MPV 10.8 11/26/19 09:00: COVID-19 (SANCHEZ) Pending Current Medications Albuterol Sulfate (Ventolin Aerosols) 2.5 mg INHALATION Q4H PRN PRN PRN Reason: SOB &/OR WHEEZING Albuterol/Ipratropium (Duoneb) 3 ml INHALATION Q6HWA.RT [facility] Last Admin: 11/26/19 07:04 Dose: 3 ml Documented by: Amoxicillin/Clavulanate Potassium (Augmentin Tablet) 875 mg PO BID [facility] Last Admin: 11/26/19 09:36 Dose: 875 mg Documented by: Budesonide (Pulmicort Aerosol) 0.5 mg INHALATION Q12H.RT [facility] Last Admin: 11/26/19 07:04 Dose: 0.5 mg Documented by: Buprenorphine HCl (Buprenorphine Hcl) 2 mg SL Q12H [facility]; Taper Stop: 11/27/19 00:29 Last Admin: 11/26/19 00:33 Dose: 2 mg Documented by: Clonidine (Catapres) 0.2 mg PO TID [facility] Last Admin: 11/26/19 06:47 Dose: 0.2 mg Documented by: Dextrose (D50w Syringe) 0 gm IV X1 PRN; Protocol PRN Reason: Hypoglycemia Dicyclomine HCl (Bentyl) 20 mg PO Q6H PRN PRN PRN Reason: Abdominal Discomfort Last Admin: 11/25/19 08:26 Dose: 20 mg Documented by: Famotidine (Pepcid) 40 mg PO DAILY [facility] Last Admin: 11/26/19 09:46 Dose: Not Given Documented by: Gabapentin (Neurontin) 600 mg PO TID [facility] Last Admin: 11/26/19 06:47 Dose: 600 mg Documented by: Glucagon () 1 mg IM .X1 PRN PRN Reason: Hypoglycemia Hydroxyzine Pamoate (Vistaril Pamoate Capsule) 50 mg PO Q6H PRN PRN PRN Reason: mild anxiety Last Admin: 11/26/19 09:47 Dose: 50 mg Documented by: Ibuprofen (Motrin) 400 mg PO Q6H PRN PRN PRN Reason: HEADACHE Last Admin: 11/26/19 04:25 Dose: 400 mg Documented by: Loperamide HCl (Imodium) 2 mg PO Q4H PRN PRN PRN Reason: LOOSE STOOLS Loratadine (Claritin) 10 mg PO DAILY [facility] Last Admin: 11/26/19 09:46 Dose: Not Given Documented by: Methocarbamol (Methocarbamol) 1,500 mg PO Q6H PRN PRN PRN Reason: MUSCLE SPASM Last Admin: 11/25/19 22:31 Dose: 1,500 mg Documented by: Nicotine (Nicoderm Cq (Pbkc)) 21 mg TRANSDERM. DAILY [facility] Last Admin: 11/26/19 09:46 Dose: Not Given Documented by: Nicotine Polacrilex (Rugby Nicotine (Bkc)) 2 mg PO Q2H PRN PRN PRN Reason: Nicotine Craving Nutritional Formula (Lactose Free) (Ensure Enlive) 120 ml PO 4X/DAY [facility] Last Admin: 11/26/19 09:46 Dose: Not Given Documented by: Ondansetron HCl (Zofran) 8 mg PO Q8H PRN PRN PRN Reason: NAUSEA Last Admin: 11/26/19 09:36 Dose: 8 mg Documented by: Ondansetron HCl (Zofran) 4 mg IV Q8H PRN PRN PRN Reason: NAUSEA/VOMITING Sodium Chloride () 10 - 40 ml IV UD PRN PRN Reason: SALINE FLUSH Trazodone HCl (Desyrel) 100 mg PO QHS PRN PRN PRN Reason: INSOMNIA Last Admin: 11/25/19 22:33 Dose: 100 mg Documented by: STROKE Vital Signs/Narrative: Vital Signs Temp Pulse Resp BP Pulse Ox 11/26/19 10:38 97.8 F 55 L 16 125/84 H 97 11/26/19 09:32 97.8 F 55 L 16 125/84 H 97 Medical Necessity - Tobacco Use Smoking Status: Heavy Smoker (>10/day) Tobacco Use: Cigarettes Assessment/Plan All Active Problems Abscess of left hand including fingers (Acute) 1. Acute opioid withdrawal, stable, Continue on withdrawal protocol 2. Left dorsum of hand and left foot swelling, Going for I & D of the left hand, continue on Augmentin 3. Hypertension, improved, No history of hypertension; continue to monitor 4. Chronic Hepatitis C, needs to follow-up in the outpatient 5. Nicotine dependence, on replacement 6. Malnutrition, severe, POA On nutritional supplements 7. Polysubstance use, advised to quit 8. DVT prophylaxis - encourage early ambulation Inpatient E&M: 97994 Subs Hosp L2
--- NOTE | 2019-11-26 12:00 | ABS_PTH ---
PATIENT: VENKATESH AMARAL LOC: MS3 U#:[id number] AGE/SX: 64/F [place] [facility] [facility] [place]: Dr. Mell Rg MD : [id number] BED: 1 DIS: 11/27/2019 SPEC #: [id number] RECD: 11/26/19 14:40 STATUS: SONNY GRISELDA #: [id number] OSCAR: 11/26/19 12:[address]: Michael Morris DEPT: SURGICAL PATHOLOGY RECD BY: Reggie Bell ENTERED: 11/27/19 09:35 SP TYPE: Abscess OTHR DR: MD Dr. Ewelina Serrato MD No Primary Care Phys Tissues: Finger, NOS Procedures: Surgery Specimen Level III HEADER OPERATION: Incision and drainage abscess ring finger PRE-OP DIAGNOSIS: IV drug abuse abscess left ring finger TISSUE SUBMITTED: Left ring and long finger abscess MICROSCOPIC DIAGNOSIS Left ring and long finger abscess: Pieces of skin and fibroconnective tissue with acute and chronic inflammation and granulation tissue reaction. GURDEEP:rosa elena 11/30/19 MICROSCOPIC DESCRIPTION Slides are reviewed. GROSS DESCRIPTION Received in fixative is one container labeled with the patient's name and designated left ring and long finger abscess. The specimen consists of multiple fragments of wilson-white skin that in aggregate measure 2.5 x 2 x 0.4 cm. The larger pieces are sectioned. The entire specimen is submitted in two cassettes. / GURDEEP:rosa elena 11/27/19 TC:2 CPT: 11051
--- NOTE | 2019-11-26 13:01 | PCA ---
PT OFF FLOOR
--- NOTE | 2019-11-26 13:17 | PCM.OPRPT ---
Report of Operation Date of Procedure: 11/26/19 Pre-Operative Diagnosis: 1. Abscess dorsum left hand at MP joint ring finger. 2. Abscess dorsum left hand at MP joint long finger. 3. IV drug abuse. 4. Heroin use. 5. Smoker. Post-Operative Diagnosis: Same. Surgery/Procedure Performed:: 1. Surigcal preparation dorsum left hand at MP joint ring finger with incision and drainage and excisional debridement IV drug abuse abscess. 2. Surgical preparation dorsum left hand at MP joint long finger with incision and drainage and excisional debridement IV drug abuse abscess. Description of Surgical Findings:: The patient is a 64 year old F with a past medical history of including heroine and nicotine as well as hepatitis C was admitted for opiate withdrawal. Patient uses heroin daily and states she snorts this and injects it. She had been on Suboxone in the past but not presently. She states she tried to inject drugs on the dorsum left hand several days ago and developed increased redness and swelling and pain. She poked the area with a needle at home and drained the pus herself which improved her symptomatology. She has a persistent area of fluctuance on the dorsum of her left hand at MP joint ring finger. She is currently on Augmentin. She is right hand dominant. I was asked to evaluate this patient for surgical options for treatment. Patient was informed of the risks and complications of the procedure including alternatives to surgery. These were discussed with the patient personally. Patient voices understanding and wishes to proceed. Some of the risks and complications that were discussed included but were not inclusive of failure to diagnose including symptom relief, pain, infection, numbness, stiffness, loss of digit, RSD (CRPS), need for further surgery, contracture, and wound healing problems. Encouraged patient to stop smoking as it may have deleterious effects on wound healing. Size of defect dorsum left hand at MP joint ring finger - 1.5 x 0.7 cm. Size of defect dorsum left hand at MP joint long finger - 2 x 1.5 cm. Length of zig zag incisions proximal and distal to wounds are 2.5 cm for each finger. sewing machine operator paper bags: None Type of Anesthesia:: General Specimen's removed: Abscess dorsum left hand at MP joints ring finger and long finger to Pathology and Microbiology. Drains: None. Estimated Blood Loss (mL): 25 ml. Description of Procedure: Patient was taken to OR in supine position and was placed under general anesthesia. The left hand was prepped and draped in the usual fashion. SCD's were placed for DVT prophylaxis. Perioperative antibiotics were given intravenously. The abscess initially was located at the MP joint by ring finger and extended to the MP joint by long finger. The left hand was elevated and compressed with gauze. I didn't elevate the tourniquet initially because of the presence of infection. Zig zag incisions were made on the dorsum of the left hand over the MP joints to the ring finger and long finger and extended proximally onto the dorsum and distally onto the proximal phalanx. Skin flaps were elevated and secured to the skin with 5-0 Nylon suture. Dissection was carried down to the underlying extensor tendon. A lot of fat necrosis was present. Synovial inflammation was present over the tendons and was excised. Some pus was seen around the tendons more so around the long finger extensor tendon. The pus was deep to the tendons. The fat necrosis and synovial inflammation was excised and debrided. The skin overlying the pus was excised and debrided since some vascular compromise was noted. Some of the tissue was sent to Pathology for analysis to rule out carcinoma and to Microbiology for culture. A positive culture will necessitate antibiotic therapy. The wounds were copiously irrigated with saline. Hemostasis was obtained with gauze compression and electrocautery. The points of the zig zag incisions were secure with 5-0 Nylon suture. The size of the wound over the MP joint long finger was 2 x 1.5 cm. The size of the wound over the MP joint ring finger was 1.5 x 0.7 cm. The length of the proximal zig and distal zag for each finger wound was 2.5 cm. The wound were packed with Mepitel nonadherent dressing followed by Kerlix gauze and Betadine followed by 4x4 gauze and 2 inch Marvin wrap and a compression vicky wrap. Patient tolerated the procedure well and was sent to PACU in satisfactory condition. Patient will be sent upstairs for continued postop care. Will begin Silver dressing changes tomorrow. After discharge will followup at the Wound Center. Will encourage range of motion exercises postop to minimize stiffness. If stiffness develops, then she would need OT for range of motion exercises, strengthening, and edema management. If there is a plateau in the healing process, can proceed with delayed closure with skin graft or skin flap reconstruction. Grafts/Implants Used: None. - Complications None. - Admit VTE Documentation VTE Present on Admission: No VTE Mechan Device Prophylaxis: SCD's VTE Pharm Prophylaxis ordered?: No Surgery Charges CPT - 09406 ICD-10 - S61.402A, L02.512, F19.10, F11.90, F17.200 18416 L02.512, F19.10, F11.90, F17.200 70192 L02.512, F19.10, F11.90, F17.200
[2019-11-26] MEDS: oxyCODONE 5 MG Tablet PO (13:55)
[2019-11-26] MEDS: 0.9% Normal Saline 1,000 ML 100 ML IV (15:00)
[2019-11-26] MEDS: Ketorolac 30 MG/ML Syringe IV (18:53)
[2019-11-26] MEDS: Acetaminophen 500 MG Tablet 1000 MG PO (19:41)
[2019-11-26] MEDS: traZODone 100 MG Tablet PO (21:47)
[2019-11-26] MEDS: Methocarbamol 750 MG Tablet 1500 MG PO (21:48)
--- NOTE | 2019-11-26 22:09 | NURSING ---
AT 2130 PT MAKES THIS RN AWARE THAT SHE PLANS TO LEAVE AMA D/T UNCONTROLLED PAIN. THIS RN DISCOURAGED PT FROM LEAVING AND DISCUSSED MEDICINAL OPTIONS FOR PAIN MANAGEMENT THAT DO NOT INCLUDE NARCOTICS. PT AGREEABLE TO TRY EXISTING PRNS FOR PAIN MANAGEMENT.
[2019-11-27] MEDS: 0.9% Saline Lock 10 ML Syringe IV ×4 (00:18→12:52)
[2019-11-27 00:26] VITALS: BP 176/82; PULSE 71; RESP 20; TEMP 36.7; O2SAT 95
[2019-11-27] MEDS: Ketorolac 30 MG/ML Syringe IV ×3 (00:56→12:52)
[2019-11-27] MEDS: 0.9% Normal Saline 1,000 ML 100 ML IV (03:00)
[2019-11-27 06:13] LABS: Absolute Neutrophil Count 2.9 X10^3/uL (2.0-7.7); Basophil# 0.04 X10^3/uL; Basophil% 0.5 % (0-1); Eosinophil# 0.33 X10^3/uL; Eosinophils% 4.5 % (0-5); Hematocrit 34.5 % (37-47); Hemoglobin 10.2 g/dL (12.0-15.0); Lymphocyte % 47.7 % (19-41); Mean Corp Hgb Conc 29.6 g/dL (32-36); Mean Corpuscular Hgb 24.1 pg (27.0-32.0); Mean Corpuscular Volume 81.6 fL (81-99); Mean Platelet Vol. 10.8 fl (6.2-12.0); Monocyte% 6.8 % (0-10); NRBC Flagged by Analyzer 0 % (0-5); Neutrophil # 2.93 X10^3/uL (2.7-7.7); Neutrophil % 40.1 % (47-70); Platelet Count 196 K/mm3 (150-450); RBC Distribution Width CV 17.2 % (11.6-14.6); RBC Distribution Width SD 50.1 fl (35.1-43.9); Red Blood Count 4.23 M/mm3 (4.2-5.4); White Blood Count 7.3 K/mm3 (4.4-11.0)
[2019-11-27 06:30] VITALS: BP 136/99; PULSE 61; RESP 18; TEMP 37; O2SAT 96
[2019-11-27] MEDS: Ondansetron 8 MG Tablet PO (06:44)
[2019-11-27] MEDS: Acetaminophen 500 MG Tablet 1000 MG PO ×2 (06:45→15:34)
[2019-11-27] MEDS: hydrOXYzine PAM 25 MG Capsule 50 MG PO (06:45)
[2019-11-27] MEDS: cloNIDine HCl 0.2 MG Tablet PO ×2 (06:46→17:25)
[2019-11-27] MEDS: Gabapentin 600 MG Tablet PO ×2 (06:46→15:34)
[2019-11-27] MEDS: Methocarbamol 750 MG Tablet 1500 MG PO (06:46)
[2019-11-27 06:50] LABS: Anion Gap 6 (5-15); BUN 11 mg/dL (7-18); BUN/Creat Ratio 20.6 RATIO (10-20); Calcium,Total 6.6 mg/dL (8.5-10.1); Chloride 118 mmol/L (98-107); Creatinine, Serum 0.53 mg/dL (0.55-1.02); EST Glomerular Filtration Rate 123 mL/min (>60); Est Glom Filt Rate - Afr Amer 149 mL/min (>60); Estimated Creatinine Clearance 78.88 ml/min; Glucose 108 mg/dL (74-106); Potassium 2.7 mmol/L (3.5-5.1); Sodium Level 146 mmol/L (136-145)
[2019-11-27 08:03] LABS: Magnesium 1.3 mg/dL (1.6-2.6)
[2019-11-27] MEDS: Potassium Chloride 10mEq/100mL 10 MEQ/100 ML IV.SOLN. 100 MEQ IV BOLUS ×4 (08:36→12:18)
[2019-11-27] MEDS: Ibuprofen 400 MG Tablet PO ×2 (08:41→17:17)
--- NOTE | 2019-11-27 08:51 | CASEMGMT ---
Social Work Note SW spoke with Samantha at [facility]. Samantha states Bradly from [facility] will be over today to check in in with pt. Minda Galvez GRAPHIC ART DESIGNER, CONSTRUCTION JOB TITLES
[2019-11-27] MEDS: HYDROmorphone 0.5 MG/0.5 ML SYRINGE IV (09:43)
[2019-11-27] MEDS: Loratadine 10 MG Tablet PO (11:02)
[2019-11-27] MEDS: Famotidine 20 MG Tablet 40 MG PO (11:02)
--- NOTE | 2019-11-27 11:43 | NURSING ---
wound photo: left hand
[2019-11-27 12:57] VITALS: BP 157/96; PULSE 59; RESP 18; TEMP 36.8; O2SAT 98
--- NOTE | 2019-11-27 13:09 | CASEMGMT ---
Addendum entered by Paul De 11/27/19 15:49: Discharge instructions and summary, as well as dressing change orders have been faxed to [facility]. Addendum entered by Paul De 11/27/19 14:49: Call placed to YESY Mendez materials planner/production planner w/[employer] @ [phone]. VM message left informing her pt is being discharged today and will be getting HHC with [facility] for daily dsg changes/wound care. Original Note: JACOBO DOWNS NOTE: 1105: Pt being discharged today and will need daily dressings changes to left hand. JACOBO CM to room to talk with pt. Pt states she lives alone and spoke with her daughter who lives very close to her re: if she would be willing/able to help with the dressing changes, but states her daughter started gagging just talking with her about it over the phone. She states she does not have anyone else who would be able to/willing to learn how to do the dressing changes. Pt would like [facility] and 1st choice is [facility]. Call placed to [facility] and spoke w/[facility] and referral made for SN for wound care/dsg changes. [facility] aware pt is not able to do own dressing changes and does not have any family/friends who would be able to learn to do them, so she will need [facility] visit daily for dsg changes. [facility] states they will review referral to determine if they are able to accept pt/have staffing for this. 1250: Call placed back to [facility] @ [facility]. She states they are able to accept pt and start of care will be tomorrow, Sat 11/27, and they do have staffing to provide daily visits for dressing changes. Per pt, her cell phone is not working properly and she asks for [facility] to contact her via her daughter, Monika, phone. [facility] @ [facility] made aware. Pt made aware [facility] able to accept her. She denies having any other questions/concerns re: discharge. Pt aware script for dressing supplies will be provided w/d/c paperwork. She states she/dtr will be able to molded goods spot picker the supplies. Script for dressing supplies signed by Dr Rg and placed with pt's discharge paperwork at this time. Raisa CENTENO aware. [facility]: PH: [phone] Will fax d/c summary and instructions to [facility] when they are available. Joie WOOD RN CM
--- NOTE | 2019-11-27 14:00 | CASEMGMT ---
Social Work Note RN asking when someone from [facility] will be in to see pt. BROWN placed a call to Bradly at [facility]. Bradly states she will be at [facility] around 3:15-3:30pm to see pt. BROWN updated RN. Minda Galvez VITICULTURIST, RECTIFICATION PRINTER
--- NOTE | 2019-11-27 15:31 | DCINST_ITS ---
- Discharge Diagnoses Current Active Problems: Acute opioid withdrawal, electrolyte imbalances Reason(s) for Visit for Discharge Instructions: Acute opioid withdrawal,left hand abscess You will use the following diet at home:: Regular Your food should be the consistency of: Regular Your liquids should be the consistency of: Regular/Thin Discharge Activity: Return to Normal Activity Additional Instructions: You are strongly advised to quit smoking and using illicit drugs. Follow-up with your primary care doctor within 1 week for repeat kidney function test. Follow-up with Dr. Morris in the wound center in 1 week. Allergies/Adverse Reactions: Allergies butorphanol [From Stadol] Adverse Reaction (Verified 11/23/19 19:08) NEEDS FOLLOW-UP pentazocine [From Talwin] Adverse Reaction (Verified 11/23/19 19:08) NEEDS FOLLOW-UP ropinirole [From Requip] Adverse Reaction (Verified 11/23/19 19:08) PT UNSURE OF REACTION Medications to take at Discharge Albuterol Inhaler [Ventolin Hfa] 2 puff INHALATION Q4H PRN PRN 11/23/19 Budesonide/Formoterol Fumarate [Symbicort 160-4.5 Mcg Inhaler] 2 puff IH BID 11/23/19 Cetirizine HCl [Zyrtec] 10 mg PO DAILY 11/23/19 Clonidine HCl [Catapres] 0.2 mg PO TID 11/23/19 Famotidine [Pepcid] 40 mg PO DAILY 11/23/19 Gabapentin 600 mg PO TID 11/23/19 Tiotropium [place] [Spiriva 18 MCG] 1 puff INHALATION DAILY 11/23/19 Acetaminophen [Tylenol] 1,000 mg PO Q8 tab 11/27/19 Amox/Clavulanate Tablet [Augmentin Tablet] 875 mg PO Q12H 5 Days #10 tab 11/27/19 Ensure Enlive 120 ml PO 4X/DAY 30 Days #120 liquid 11/27/19 Ketorolac [Toradol] 10 mg PO Q6H 3 Days #12 tab 11/27/19 Magnesium 400 mg PO BID 7 Days #28 tab 11/27/19 Nicotine Polacrilex [Nicotine Gum] 2 mg PO Q2H PRN PRN 30 Days #30 gum 11/27/19 Nicotine [Nicoderm Cq] 21 mg TRANSDERM. DAILY 30 Days #30 patch 11/27/19 Omeprazole [Prilosec] 40 mg PO BID 30 Days #60 tab 11/27/19 Potassium Chloride [Klor-Con M20] 40 meq PO DAILY 3 Days #6 tab.er.prt 11/27/19 The following prescriptions were given: Amox/Clavulanate Tablet [Augmentin Tablet] 875 mg PO Q12H 5 Days #10 tab Transmission Status: [id number] Ensure Enlive 120 ml PO 4X/DAY 30 Days #120 liquid Transmission Status: Received by [id number] Potassium Chloride [Klor-Con M20] 40 meq PO DAILY 3 Days #6 tab.er.prt Magnesium 400 mg PO BID 7 Days #28 tab Transmission Status: [facility] to [id number] Nicotine [Nicoderm Cq] 21 mg TRANSDERM. DAILY 30 Days #30 patch Transmission Status: [id number] Nicotine Polacrilex [Nicotine Gum] 2 mg PO Q2H PRN PRN 30 Days #30 gum PRN Reason: Nicotine Craving Transmission Status: [facility] by [id number] Ketorolac [Toradol] 10 mg PO Q6H 3 Days #12 tab Transmission Status: [id number] Primary Care Physician: [facility] Doctor,Out of [NON-STAFF] - Please follow up with your Primary Care Physician in: within 1-2 weeks Test Results: Test results from this visit will be discussed in further detail at your follow- up appointment, if applicable. Please Follow Up With: Michael Morris MD When: in the wound center in 1 week - Wound center number: Proposed Discharge Date: 11/27/19
--- NOTE | 2019-11-27 15:45 | DS.PCM_ITS ---
Discharge Date and Diagnosis Date of Admission: 11/23/19 Date of Discharge: 11/27/19 - Primary Discharge Diagnosis Acute Problems: Acute opioid withdrawal Abscess of the left hand - Secondary Discharge Diagnosis Chronic Problems: Chronic Problems Retained foreign body of hand (Chronic) retained metallic needle foreign body ulnar aspect left hand between small finger and ring finger metacarpals Smoker (Chronic) Heroin use (Chronic) IV drug abuse (Chronic) Hospital Course and Treatment Imaging Results: Clinical Impression(s) from Imaging Studies Foot X-Ray 11/25/19 11:08 IMPRESSION: Soft tissue swelling. Electronically Signed: Agustin Douglas, at 12:36 EDT , Service support , Hand X-Ray 11/26/19 10:20 IMPRESSION: Linear metallic foreign bodies are seen in the soft tissues between the fourth and fifth metacarpals as well as overlying the base of the first metacarpal. Electronically Signed: Agustin Douglas, at 13:54 EDT , Service support , Plastic surgery Operations: - - s/p I & D of left hand on 11/26/19 Summary of Care Provided: The patient is a 64 year old F with past medical history of polysubstance use disorder was admitted for acute opioid withdrawal. Was managed on the Subutex withdrawal protocol. Patient was also found to have abscess of the left hand for which plastic surgery was consulted. I went I&D of the hand on 11/26/19. Patient was discharged on oral Augmentin to complete 1 week of antibiotics. She was managed with IV Toradol, Tylenol and ibuprofen. Patient was discharged with home health and will be followed in the wound center by Dr. Morris. She also follow-up with 180 in the outpatient. Subjective: On the day of discharge, patient was seen and examined. Complains of pain in the left hand as dressing changes were made. Objective: Physical exam: General: Alert, Oriented x3, Cooperative, - - restless, looks uncomfortable HEENT: Atraumatic, PERRLA, EOMI, Normocephalic Oral: Dry Mucosa Neck: Supple, No JVD, Negative Carotid Bruits Lungs: Clear to auscultation, Normal air movement, No rhonchi, No wheeze, No rales Cardiovascular: Regular rate, Regular Rhythm, Normal S1, Normal S2, No murmurs Abdomen: Bowel Sounds Present, Soft, Non Tender, Non-Distended, No Hepato- splenomegaly Extremities: No clubbing, No cyanosis, No edema, Capillary Refill Less than 3 Seconds Skin: No rashes, No breakdown Musculoskeletal: No Tenderness to Palpation of Joints or Extremities Lymphatic: No Cervical, Supraclavicular, or Inguinal Adenopathy Neurological: Cranial nerves II-XII grossly intact, Neuro grossly intact, Motor Exam 5/5 strength throughout Psych/Mental Status: Anxious, Restless, Alert and oriented to time, place, person, mood and affect - Physical Exam Vitals/I&O's: Vital Signs Temp Pulse Resp BP Pulse Ox 98.2 F 59 L 18 157/96 H 98 11/27/19 12:57 11/27/19 12:57 11/27/19 12:57 11/27/19 12:57 11/27/19 12:57 Oxygen Delivery Method Room Air Weight: 45.4 kg Body Mass Index (BMI) 17.2 Intake and Output for Last 24 Hours 11/25/19 11/26/19 11/27/19 23:59 23:59 23:59 Intake Total 842.00 / 842.00 819 / 819 Balance 842.00 / 842.00 819 / 819 Microbiology Past 72 Hours 11/26/19 Unknown Other - Other Gram Stain - Final 11/26/19 Unknown Other - Other Wound Culture - Preliminary No growth-Final to follow Laboratory Results 11/27/19 05:17: WBC 7.3, RBC 4.23, Hgb 10.2 L, Hct 34.5 L, MCV 81.6, MCH 24.1 L, MCHC 29.6 L, RDW Std Deviation 50.1 H, RDW Coeff of Nathanael 17.2 H, Plt Count 196, MPV 10.8, Immature Gran % (Auto) 0.400, Neut % (Auto) 40.1 L, Lymph % (Auto) 47.7 H, [place] % (Auto) 6.8, Eos % (Auto) 4.5, Baso % (Auto) 0.5, Absolute Neuts (auto) 2.9, Absolute Lymphs (auto) 3.50, Nucleated RBC % 0 11/27/19 05:17: Sodium 146 H, Potassium 2.7 L*, Chloride 118 H, Carbon Dioxide 22.0, Anion Gap 6, BUN 11, Creatinine 0.53 L, Estim Creat Clear Calc 78.88, Est GFR (MDRD) Af Amer 149, Est GFR (MDRD) Non-Af 123, BUN/Creatinine Ratio 20.6 H, Glucose 108 H, Calcium 6.6 L, Prealbumin 13.0 L 11/27/19 05:17: Magnesium 1.3 L Current Medications Acetaminophen (Tylenol) 1,000 mg PO Q8 [facility] Last Admin: 11/27/19 15:34 Dose: 1,000 mg Documented by: Albuterol Sulfate (Ventolin Aerosols) 2.5 mg INHALATION Q4H PRN PRN PRN Reason: SOB &/OR WHEEZING Albuterol/Ipratropium (Duoneb) 3 ml INHALATION Q6HWA.RT [facility] Last Admin: 11/27/19 14:10 Dose: Not Given Documented by: Budesonide (Pulmicort Aerosol) 0.5 mg INHALATION Q12H.RT [facility] Last Admin: 11/27/19 07:40 Dose: Not Given Documented by: Clonidine (Catapres) 0.2 mg PO TID [facility] Last Admin: 11/27/19 06:46 Dose: 0.2 mg Documented by: Dextrose (D50w Syringe) 0 gm IV X1 PRN; Protocol PRN Reason: Hypoglycemia Dicyclomine HCl (Bentyl) 20 mg PO Q6H PRN PRN PRN Reason: Abdominal Discomfort Last Admin: 11/25/19 08:26 Dose: 20 mg Documented by: Famotidine (Pepcid) 40 mg PO DAILY [facility] Last Admin: 11/27/19 11:02 Dose: 40 mg Documented by: Gabapentin (Neurontin) 600 mg PO TID [facility] Last Admin: 11/27/19 15:34 Dose: 600 mg Documented by: Glucagon () 1 mg IM .X1 PRN PRN Reason: Hypoglycemia Hydroxyzine Pamoate (Vistaril Pamoate Capsule) 50 mg PO Q6H PRN PRN PRN Reason: mild anxiety Last Admin: 11/27/19 06:45 Dose: 50 mg Documented by: Sodium Chloride () 1,000 mls @ 100 mls/hr IV .Q10H [facility] Last Admin: 11/27/19 03:00 Dose: 100 mls/hr Documented by: Magnesium Sulfate 2 gm/ Sodium (Chloride) 104 mls @ 104 mls/hr IV X1 ONE Stop: 11/27/19 16:37 Ibuprofen (Motrin) 400 mg PO Q6H PRN PRN PRN Reason: HEADACHE Last Admin: 11/27/19 08:41 Dose: 400 mg Documented by: Ketorolac Tromethamine (Toradol (Bkc)) 30 mg IV Q6H PRN PRN PRN Reason: Pain Score 1-1010 Stop: 12/01/19 17:59 Last Admin: 11/27/19 12:52 Dose: 30 mg Documented by: Loperamide HCl (Imodium) 2 mg PO Q4H PRN PRN PRN Reason: LOOSE STOOLS Loratadine (Claritin) 10 mg PO DAILY [facility] Last Admin: 11/27/19 11:02 Dose: 10 mg Documented by: Methocarbamol (Methocarbamol) 1,500 mg PO Q6H PRN PRN PRN Reason: MUSCLE SPASM Last Admin: 11/27/19 06:46 Dose: 1,500 mg Documented by: Nicotine (Nicoderm Cq (Pbkc)) 21 mg TRANSDERM. DAILY [facility] Last Admin: 11/27/19 11:02 Dose: Not Given Documented by: Nicotine Polacrilex ([place] Nicotine (Bkc)) 2 mg PO Q2H PRN PRN PRN Reason: Nicotine Craving Nutritional Formula (Lactose Free) (Ensure Enlive) 120 ml PO 4X/DAY [facility] Last Admin: 11/27/19 11:02 Dose: 120 ml Documented by: Ondansetron HCl (Zofran) 8 mg PO Q8H PRN PRN PRN Reason: NAUSEA Last Admin: 11/27/19 06:44 Dose: 8 mg Documented by: Ondansetron HCl (Zofran) 4 mg IV Q8H PRN PRN PRN Reason: NAUSEA/VOMITING Silver Nitrate/Potassium Nitrate (Silver Nitrate (Bkc)) 1 each TOPICAL PRN PRN; Protocol PRN Reason: bleeding with dressing change Sodium Chloride () 10 - 40 ml IV UD PRN PRN Reason: SALINE FLUSH Last Admin: 11/27/19 12:52 Dose: 10 ml Documented by: Trazodone HCl (Desyrel) 100 mg PO QHS PRN PRN PRN Reason: INSOMNIA Last Admin: 11/26/19 21:47 Dose: 100 mg Documented by: Discharge Diet: No Restrictions Discharge Activity: Return to Normal Activity Home Medications: Medications to take at Discharge Albuterol Inhaler [Ventolin Hfa] 2 puff INHALATION Q4H PRN PRN 11/23/19 Budesonide/Formoterol Fumarate [Symbicort 160-4.5 Mcg Inhaler] 2 puff IH BID 11/23/19 Cetirizine HCl [Zyrtec] 10 mg PO DAILY 11/23/19 Clonidine HCl [Catapres] 0.2 mg PO TID 11/23/19 Famotidine [Pepcid] 40 mg PO DAILY 11/23/19 Gabapentin 600 mg PO TID 11/23/19 Tiotropium [place] [Spiriva 18 MCG] 1 puff INHALATION DAILY 11/23/19 Acetaminophen [Tylenol] 1,000 mg PO Q8 tab 11/27/19 Amox/Clavulanate Tablet [Augmentin Tablet] 875 mg PO Q12H 5 Days #10 tab 11/27/19 Ensure Enlive 120 ml PO 4X/DAY 30 Days #120 liquid 11/27/19 Ketorolac [Toradol] 10 mg PO Q6H 3 Days #12 tab 11/27/19 Magnesium 400 mg PO BID 7 Days #28 tab 11/27/19 Nicotine Polacrilex [Nicotine Gum] 2 mg PO Q2H PRN PRN 30 Days #30 gum 11/27/19 Nicotine [Nicoderm Cq] 21 mg TRANSDERM. DAILY 30 Days #30 patch 11/27/19 Omeprazole [Prilosec] 40 mg PO BID 30 Days #60 tab 11/27/19 Potassium Chloride [Klor-Con M20] 40 meq PO DAILY 3 Days #6 tab.er.prt 11/27/19 Following Prescrptions Were Given to Patient: Amox/Clavulanate Tablet [Augmentin Tablet] 875 mg PO Q12H 5 Days #10 tab Transmission Status: [id number] Ensure Enlive 120 ml PO 4X/DAY 30 Days #120 liquid Transmission Status: [id number] Potassium Chloride [Klor-Con M20] 40 meq PO DAILY 3 Days #6 tab.er.prt Magnesium 400 mg PO BID 7 Days #28 tab Transmission Status: [id number] Nicotine [Nicoderm Cq] 21 mg TRANSDERM. DAILY 30 Days #30 patch Transmission Status: [id number] Nicotine Polacrilex [Nicotine Gum] 2 mg PO Q2H PRN PRN 30 Days #30 gum PRN Reason: Nicotine Craving Transmission Status: [id number] Ketorolac [Toradol] 10 mg PO Q6H 3 Days #12 tab Transmission Status: Received by [id number] Primary Care Physician: [facility] Doctor,Out of [NON-STAFF] - Please follow up with your Primary Care Physician in: within 1-2 weeks Please Follow Up With: Michael Morris MD When: in the wound center in 1 week - Wound center number: Disposition: Home with Home Health Minutes spent on discharge:: 40 Patient Condition:: Stable Medical Necessity - Tobacco Use Smoking Status: Heavy Smoker (>10/day) Tobacco Use: Cigarettes Meaningful Use Info Meaningful Use Diagnoses (Choose all that apply): None applicable Inpatient E&M: 34757 Disch Hosp
--- NOTE | 2019-11-27 16:53 | NURSING ---
Lalitha called to transportation home for pt.. informed it should be [facility] and they would arrive anytime between now 1644 and 1943.
[2019-11-27 17:18] VITALS: BP 167/92; PULSE 58; RESP 16; TEMP 36.5; O2SAT 97
--- NOTE | 2019-11-27 22:28 | PCM.PN.SRG ---
Subjective: Postop #1 Patient is resting comfortably. The Silver dressing change was painful. - Physical Exam Vitals/I&O's: Vital Signs Temp Pulse Resp BP Pulse Ox 97.7 F L 58 L 16 167/92 H 97 11/27/19 17:18 11/27/19 17:18 11/27/19 17:18 11/27/19 17:18 11/27/19 17:18 Oxygen Delivery Method Room Air Weight: 100 lb 1.438 oz Body Mass Index (BMI) 17.2 Intake and Output for Last 24 Hours 11/25/19 11/26/19 11/27/19 23:59 23:59 23:59 Intake Total 842.00 / 842.00 2034 Balance 842.00 / 842.00 2034 General: Alert, Oriented x3 HEENT: PERRLA, EOMI Oral: Moist Mucosa Neck: Supple Abdomen: Soft, Non-Distended Skin: Ulcer/ Wound - left hand ulcers are clean. No further evidence of infection noted. Swelling slowly resolving. Less redness seen. Neurological: Cranial nerves II-XII grossly intact Psych/Mental Status: Normal Affect, Appropriate Microbiology Past 72 Hours 11/26/19 Unknown Other - Other Gram Stain - Final 11/26/19 Unknown Other - Other Wound Culture - Preliminary No growth-Final to follow Laboratory Results 11/27/19 05:17: WBC 7.3, RBC 4.23, Hgb 10.2 L, Hct 34.5 L, MCV 81.6, MCH 24.1 L, MCHC 29.6 L, RDW Std Deviation 50.1 H, RDW Coeff of Nathanael 17.2 H, Plt Count 196, MPV 10.8, Immature Gran % (Auto) 0.400, Neut % (Auto) 40.1 L, Lymph % (Auto) 47.7 H, Gonzales % (Auto) 6.8, Eos % (Auto) 4.5, Baso % (Auto) 0.5, Absolute Neuts (auto) 2.9, Absolute Lymphs (auto) 3.50, Nucleated RBC % 0 11/27/19 05:17: Sodium 146 H, Potassium 2.7 L*, Chloride 118 H, Carbon Dioxide 22.0, Anion Gap 6, BUN 11, Creatinine 0.53 L, Estim Creat Clear Calc 78.88, Est GFR (MDRD) Af Amer 149, Est GFR (MDRD) Non-Af 123, BUN/Creatinine Ratio 20.6 H, Glucose 108 H, Calcium 6.6 L, Prealbumin 13.0 L 11/27/19 05:17: Magnesium 1.3 L Medical Necessity - Tobacco Use Smoking Status: Heavy Smoker (>10/day) Tobacco Use: Cigarettes Assessment/Plan All Active Problems Open wound of left hand with complication (Acute) Abscess of left hand including fingers (Acute) 1. Abscess dorsum left hand at MP joint ring finger and long finger. 2. IV drug abuse. 3. Heroin use. 4. Smoker. 5. Retained foreign body needle x2 left hand. Continue Augmentin at discharge. Will treat with Unasyn perioperatively. X-ray reviewed. No fracture seen. There were 2 retained foreign body needles seen between the small finger and ring finger metacarpal and the thumb metacarpal. After the infection has been treated and the wounds have healed, can discuss surgical intervention in the future to remove these two retained foreign body needles. Wounds are clean with no evidence of further infection. Less redness seen. Swelling slowly resolving. There was some pain with the Silver dressing change. Needed narcotics. Discussed with the patient that she will be discharged with no narcotics because of her history of IV drug abuse. She received a script for Toradol for pain. After discharge [facility]. If she develops a plateau in the healing process, can proceed with delayed closure with skin graft or skin flap reconstruction. Anticipate increased metabolic demands from the infection. Prealbumin was 13.0. Encourage nutritional supplementation with protein to help the healing process. Home Health to assist with the Silver dressing changes daily at home. Encouraged patient to stop smoking as it may have deleterious effects on wound healing.
--- NOTE | 2019-12-02 08:53 | CASEMGMT ---
JACOBO DOWNS NOTE: VM message received from Milagros @ [facility] stating that pt has rescheduled appt's with them multiple times and therefore they are unable to do start of care. She also stated on VM that they attempted to reach pt via her daughter's number and have had no success. JACOBO DOWNS placed call back to Milagros and VM message left for her to return call. Joie WOOD RN, CM
== END 2019-11-27 17:34 | disposition home health service (06) ==
LOC: ED 19:54 → MS3 20:47
PROVIDERS: Anesthesiology; Surgery; Admitting Provider Student in an Organized Health Care Education/Training Program; Emergency Provider Emergency Medicine; Visit Provider Internal Medicine
PROC: (CPT 15004; principal; 2019-11-26 11:50)
DX: F11.23 Opioid dependence with withdrawal (principal); L02.512 Cutaneous abscess of left hand; B18.2 Chronic viral hepatitis C; F17.210 Nicotine dependence, cigarettes, uncomplicated; I10 Essential (primary) hypertension; E43 Unspecified severe protein-calorie malnutrition; M79.5 Residual foreign body in soft tissue; Z79.899 Other long term (current) drug therapy; Z79.51 Long term (current) use of inhaled steroids; Z68.1 Body mass index [BMI] 19.9 or less, adult; J44.9 Chronic obstructive pulmonary disease, unspecified; G89.29 Other chronic pain
CPT/HCPCS: 15004; 26011 ×2; 36415; 73130; 73630; 80048; 80053; 80307; 80320; 82248; 83735; 84134; 85025; 85027; 87070; 87075; 87102; 87176; 87205; 87206; 87635; 88304; 93005; 94640; 96361; 96365; 96366; 96375; 96376; 97803; 99218; 99285; 99406; G2023; H0012; J7030; A4216; G0378; G0480; J0295; J2405; U0003